=== PATIENT | male | born 1960 | race Caucasian/White ===

== ENCOUNTER 2018-08-27 17:32 | Emergency (ER) | payer BC ==
[2018-08-27] MEDS ORDERED: Ondansetron 4 MG Tab.DIS PO ONE (18:11)
[2018-08-27] MEDS ORDERED: LORazepam 2 MG/ML SDV IM ONE (18:20)
[2018-08-27] MEDS ORDERED: Ondansetron 4 MG/2 ML SDV IM ONE (18:20)
--- NOTE | 2018-08-27 18:26 | EDM.PDOCBH ---
ED HPI GENERAL MEDICAL PROBLEM - General Chief Complaint: Behavioral/Psych Stated Complaint: NAUSEA Time Seen by Provider: 08/27/18 17:57 Source of Information: Reports: Patient, RN Notes Reviewed History Limitations: Reports: No Limitations - History of Present Illness INITIAL COMMENTS - FREE TEXT/NARRATIVE: Patient is a 57-year-old male who presents to the ED for the evaluation of an anxiety attack. The patient states that he is prone to get panic attacks, however he has not had 1 in a few months. His last one was roughly 2 months ago , he had to go to the emergency room in [place], for some IV medications, as his oral medications were not working. He states he frequently gets nausea and vomiting, and other GI upset with his anxiety attacks. He states his last dose of lorazepam was roughly 3-4 hours ago. The patient notes he can feel the panic attacks coming on, as he feels edgy, and then feels as if he needs to have a bowel movement, and then gets the nausea and vomiting. He does not have any abdominal pain with these flares. The patient does not note any increased sources of anxiety that would have led up to this attack. - Related Data Allergies Allergy/AdvReac Type Severity Reaction Status Date / Time Penicillins Allergy Airway Verified 08/27/18 17:48 Tightness Home Meds: Home Meds Aspirin 81 mg PO DAILY 08/27/18 [History] Escitalopram [Lexapro] 20 mg PO DAILY 08/27/18 [History] LORazepam 1 mg PO BID 08/27/18 [History] Mesalamine 2.4 g PO DAILY 08/27/18 [History] Ondansetron [Zofran] 4 mg PO Q6HR 08/27/18 [History] Simvastatin [Zocor] 40 mg PO DAILY 08/27/18 [History] Past Medical History Cardiovascular History: Reports: High Cholesterol Gastrointestinal History: Reports: Other (See Below) Other Gastrointestinal History: Crohns Musculoskeletal History: Reports: Fracture Psychiatric History: Reports: Anxiety - Past Surgical History HEENT Surgical History: Reports: Adenoidectomy, Tonsillectomy Musculoskeletal Surgical History: Reports: Other (See Below) Other Musculoskeletal Surgeries/Procedures:: Toe Social & Family History - Tobacco Use Smoking Status *Q: Former Smoker Used Tobacco, but Quit: Yes Month/Year Tobacco Last Used: 04/2012 - Caffeine Use Caffeine Use: Reports: Coffee, Tea - Recreational Drug Use Recreational Drug Use: No ED ROS GENERAL - Review of Systems Review Of Systems: See Below Constitutional: Denies: Fever, Chills HEENT: Reports: No Symptoms Respiratory: Denies: Shortness of Breath, Cough Cardiovascular: Denies: Chest Pain Endocrine: Reports: No Symptoms GI/Abdominal: Reports: Nausea, Vomiting. Denies: Constipation, Diarrhea : Reports: No Symptoms Musculoskeletal: Reports: No Symptoms Skin: Reports: No Symptoms Neurological: Reports: No Symptoms Psychiatric: Reports: No Symptoms Hematologic/Lymphatic: Reports: No Symptoms Immunologic: Reports: No Symptoms ED EXAM, BEHAVIORAL HEALTH - Physical Exam Exam: See Below Exam Limited By: No Limitations General Appearance: Alert, WD/WN, No Apparent Distress, Anxious Ears: Normal External Exam Nose: Normal Inspection Throat/Mouth: Normal Inspection, Normal Lips, Normal Teeth, Normal Gums, Normal Oropharynx, Normal Voice, No Airway Compromise Head: Atraumatic, Normocephalic Neck: Normal Inspection Respiratory/Chest: No Respiratory Distress, Lungs Clear, Normal Breath Sounds, No Accessory Muscle Use, Chest Non-Tender Cardiovascular: Normal Peripheral Pulses, Regular Rate, Rhythm, No Murmur GI/Abdominal: Normal Bowel Sounds, Soft, Non-Tender, No Distention, No Mass Extremities: Normal Inspection, Normal Capillary Refill Neurological: Alert, Normal Mood/Affect, Normal Cognition, Normal Gait, Normal Reflexes, No Motor/Sensory Deficits, Oriented x 3 Psychiatric: Alert, Normal Affect, Normal Cognition, Normal Mood, Oriented, Other (Patient has normal mood and affect, however he is visibly anxious in the room, and does have an emesis bag by his side. He states he had 1 episode of vomiting while he was being triaged.) Skin Exam: Warm, Dry, Intact, Normal color, No rash COURSE, BEHAVIORAL HEALTH COMP - Course Vital Signs: Last Vital Signs Temp 97.9 F 08/27/18 17:52 Pulse 82 08/27/18 17:52 Resp 29 H 08/27/18 17:52 BP 161/105 H 08/27/18 17:52 Pulse Ox 98 08/27/18 17:52 Orders, Labs, Meds: Medications Discontinued Medications Generic Name Dose Route Start Last Admin Trade Name Freq PRN Reason Stop Dose Admin Lorazepam 1 mg 08/27/18 18:20 05/21/19 18:36 Ativan IM 08/27/18 18:21 1 mg ONETIME ONE Administration Ondansetron HCl 4 mg 08/27/18 18:11 08/27/18 18:40 Zofran Odt PO 08/27/18 18:12 Not Given ONETIME ONE Ondansetron HCl 4 mg 08/27/18 18:20 08/27/18 18:35 Zofran IM 08/27/18 18:21 4 mg ONETIME ONE Administration Discharge vs Psych Eval/Treatment:: 08/27/18 18:26 Patient is a 57-year-old male who presents to the ED for evaluation of his anxiety. I have ordered 1 mg IM Ativan, and 4 mg IM Zofran for initial management. 08/27/18 19:21 Patient was re-assessed bedside and states that he feels better, He is tolerating oral fluids at this time and he will find a ride to his hotel via a taxi. Departure - Departure Time of Disposition: 19:23 Disposition: Home, Self-Care 01 Clinical Impression: Panic attack - Discharge Information *PRESCRIPTION DRUG MONITORING PROGRAM REVIEWED*: No *COPY OF PRESCRIPTION DRUG MONITORING REPORT IN PATIENT CHRISTIAN: No Instructions: Panic Attack, [id number] Referrals: PCP,Not In Area [Primary Care Provider] - Forms: ED Department Discharge Additional Instructions: You have been evaluated in the ED for your panic attack. You have been given a 1 mg injection of Ativan, and a 4 mg injection of Zofran for nausea. This has helped alleviate your symptoms at today's ER visit. Please take your normal prescriptions as previously directed for future anxiety related issues. Please return to the ED if your symptoms should change or worsen.
== END 2018-08-27 19:41 | disposition home or self-care (01) ==
LOC: JD.ED 17:32
DX: F41.0 Panic disorder [episodic paroxysmal anxiety] (principal); E78.00 Pure hypercholesterolemia, unspecified; Z87.891 Personal history of nicotine dependence; Z79.899 Other long term (current) drug therapy; Z88.6 Allergy status to analgesic agent
CPT/HCPCS: 96372; 99282; J2060; J2405; 99283